=== PATIENT | male | born 1955 | race American Indian/Alaskan Native ===

== ENCOUNTER 2017-10-05 07:01 | Day surgery (SDC) | payer MEDICAID ==
[~2017-10-05 07:01] MED LIST: TETRACAINE 0.5% OD PRN
[2017-10-05] MEDS: VIGAMOX OD SCH ×3 (09:30→09:40)
[2017-10-05] MEDS: AK-Dilate OD SCH ×3 (09:30→09:40)
[2017-10-05] MEDS: MYDRIACYL OD SCH ×3 (09:30→09:40)
--- NOTE | 2017-10-05 09:46 | Anesthesia Consultation ---
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 Has large neck. MARIANA on CPAP. Smokes 1ppd X30 years.) - Airway Anesthetic Teeth Evaluation: Poor, Dentures ROM Head & Neck: Inadequate Mental/Hyoid Distance: Adequate Mallampati Class: Class IV Intubation Access Assessment: Difficult - Pulmonary Exam CTA: No (distal crackles) - Cardiac Exam Cardiac Exam: No Murmur - Pre-Operative Health Status ASA Pre-Surgery Classification: ASA3 Proposed Anesthetic Plan: MAC - Pre-Anesthesia Comment Pre-Anesthesia Comments: Patient tolerates 4 METS. No cold or flu. No chest pain. SOB with mild/mod exertion - Pulmonary Hx Smoking: Yes (1 PPD X 30 YEARS) Hx Sleep Apnea: Yes - Cardiovascular System Hx Hypertension: Yes (7 YEARS) - Central Nervous System Hx Psychiatric Problems: No - Other Systems Hx Cancer: No
--- NOTE | 2017-10-05 09:46 | Anesthesia Day of Surgery ---
Anesthesia Day of Surgery - Day of Surgery Patient Examined: Yes Patient H&P Reviewed: Yes Patient is NPO: Yes
[2017-10-05] MEDS ORDERED: NARCAN 0.4 MG/1 ML IV PRN (09:49)
[2017-10-05] MEDS ORDERED: ZOFRAN IV PRN (09:49)
[2017-10-05] MEDS ORDERED: DILAUDID IV PRN (09:49)
[2017-10-05] MEDS ORDERED: DEMEROL IV PRN (09:49)
[2017-10-05] MEDS ORDERED: LACTATED RINGERS 1,000 ML IV SCH (10:00)
[2017-10-05] MEDS ORDERED: VERSED ONE (10:08)
[2017-10-05] MEDS ORDERED: SUBLIMAZE ONE (10:31)
--- NOTE | 2017-10-05 10:37 | Post Anesthesia Evaluation ---
- Post Anesthesia Evaluation Patient Participated: Yes Airway Patent: Yes Stable Respiratory Function: Yes Nausea/Vomiting: No Temp > 96.8F: Yes Pain Manageable: Yes Adequeate Hydration: Yes Anesthesia Complications: No
[2017-10-05] MEDS ORDERED: DIAMOX PO ONE (10:50)
--- NOTE | 2017-10-05 10:53 | Operative Report ---
Operative Report Operative Report: PATIENT'S NAME: DATE OF : DATE OF SURGERY: 10/05/2017 PREOPERATIVE DIAGNOSIS: Cataract right eye POSTOPERATIVE DIAGNOSIS: Same OPERATIVE PROCEDURE: Phacoemulsification with intraocular lens implantation, right eye SURGEON: Ariane King M.D. POWER EQUIPMENT MECHANICS INSTRUCTOR SURGEON: Nagi Lens: [id number] 22.0 D ANESTHESIA: Monitored anesthesia care in combination with topical and intracameral anesthesia because of the established specific risk of reflux, arrhythmias, or anxiety attacks associated with ocular manipulation, as well as the difficulty of the batch heat treat operator to manage such potentially catastrophic events while simultaneously attempting to complete the surgical procedure and was deemed necessary for the patient's safety to have an Port Crane Operator present during the procedure whenever possible. An Port Crane Operator was utilized to regulate the intravenous sedation of the patient so the patient was cooperative yet not asleep in order for the patient to successfully maintain fixation of the eye on the operating light of the microscope. COMPLICATIONS: No surgical complications No blood loss. ALLERGIES: No known drug allergies PROGNOSIS: Excellent INDICATIONS FOR SURGERY: The patient is undergoing surgery in the hopes of eliminating or improving these visual difficulties. PROCEDURE: After arriving at the surgery center, the patient was given topical anesthetic and dilating drops, as noted in the record. The patient was then taken into the operating room and given more anesthetic drops. The eyelids , lashes, and lid margins were scrubbed with Betadine solution, and the patient was draped. The Nurse Port Crane Operator administered IV sedation and monitored the patient during the procedure. The eye was then fixated with a 0.12, and a stab incision was made in the peripheral clear cornea into the anterior chamber. This was made on my left side. Viscoelastic was next used to fill the anterior chamber. The eye was once again fixated with the 0.12 forceps and a keratome was used make an incision in clear cornea peripherally on my right hand side temporally. The capsule forceps were used to open the central anterior capsule and then make a continuous round capsulotomy. Hydrodissection was carried out utilizing a cannula and balanced salt solution to delineate the cortical material from the capsule and the nucleus from the cortical material. The phaco tip was introduced into the eye and used to remove the anterior cortical material in the area of the capsulotomy. Then the phaco tip was buried into the nucleus, and a chopping instrument was introduced into the eye and used to provide countertraction in the nucleus between this instrument and the phaco tip fracturing the nucleus. This procedure was repeated multiple times, providing multiple small segments of the lens, and then the phaco tip was used to remove each of these segments. An I/A tip was then used to remove the remaining cortex. The anterior chamber was refilled with viscoelastic. An one-piece, acrylic intraocular lens was then placed into an inserting cartridge. The tip of the inserting cartridge was introduced into the keratome incision and into the anterior chamber. The implant was gently advanced through the cartridge and into the eye, where it unfolded, and both haptics were placed in the capsular bag, where it centered nicely and appeared to be well fixated. After placement of the intraocular lens, the I~and~A handpiece was placed back into the eye and used to remove the viscoelastic, including viscoelastic that was behind the optic of the intraocular lens. The anterior chamber was then filled with balanced salt solution, and hydration of the wound was used to cause swelling of the wound and more appropriate watertight closure. When the wound was found to be firm, the patient was asked to comment on how bright the light was. If there was no light perception at all or if the light was substantially dimmer than during the rest of the surgery, the amount of fluid in the eye was decompressed to lower the intraocular pressure until the patient could see the bright light again. This was done to avoid any damage or decreased blood flow to the optic nerve. MEDICATIONS APPLIED AT END OF SURGERY: One drop of Pred Forte and Vigamox The patient was given a shield to wear at night and was instructed not to rub or push on the eye. DISCHARGE SUMMARY: The patient was released in stable condition. The patient and those with the patient were given a written sheet of postoperative instructions and counseling on any abnormal laboratory studies. The patient is to see us tomorrow for follow-up in the office and is to call immediately for any difficulties. Ariane King M.D. Date
--- NOTE | 2017-10-05 10:56 | Short Stay Summary ---
Short Stay Documentation Date of service: 10/05/17 - History H&P: obtained from office - Allergies and Medications Current Medications: Allergies corn Allergy (Verified 10/05/17 10:12) Unknown FOUND ON ALLERGY TESTING milk Allergy (Verified 10/05/17 10:12) Unknown FOUND ON ALLERGY TESTING tomato Allergy (Verified 10/05/17 10:12) Unknown FOUND ON ALLERGY TESTING wheat Allergy (Verified 10/05/17 10:12) Unknown FOUND ON ALLERY TESTING peanut Adverse Reaction (Verified 10/05/17 10:11) Anaphylaxis shrimp Adverse Reaction (Verified 10/05/17 10:11) Anaphylaxis Home Medications Medication Instructions Recorded Confirmed Last Taken Type Aspirin [Adult Low Dose Aspirin EC] 81 mg PO DAILY 10/04/17 10/04/17 10/04/17 History Hydrochlorothiazide [HCTZ] 25 mg PO QDAY 10/04/17 10/04/17 10/05/17 05:30 History Loratadine [Claritin] 10 mg PO DAILY 10/04/17 10/04/17 10/05/17 05:30 History Losartan [Cozaar] 100 mg PO QDAY 10/04/17 10/04/17 10/05/17 05:30 History Metformin HCl [Metformin HCl ER] 1,000 mg PO DAILY 10/04/17 10/04/17 10/04/17 History Naproxen [Naprosyn] 500 mg PO DAILY PRN 10/04/17 10/04/17 10/04/17 History Simvastatin [Zocor TAB] 40 mg PO DAILY 10/04/17 10/04/17 10/04/17 History amLODIPine [Norvasc] 10 mg PO DAILY 10/04/17 10/04/17 10/05/17 05:30 History fentaNYL [Fentanyl] 1 each TD Q72H 10/04/17 10/05/17 3 Days Ago History ~10/02/17 Active Medications Hydromorphone HCl (Dilaudid) 0.25 mg IV Q10MIN PRN PRN Reason: Pain, Moderate (4-6) Stop: 10/05/17 18:00 Lactated Ringer's (Lactated Ringers) 1,000 mls @ 100 mls/hr IV DIRECT YEIMY Meperidine HCl (Demerol) 25 mg IV ONCE PRN PRN Reason: Shivering Stop: 10/05/17 18:00 Moxifloxacin HCl (Vigamox) 1 drops OD Q5MIN YEIMY Stop: 10/07/17 06:01 Last Admin: 10/05/17 09:40 Dose: 1 drops Naloxone HCl (Narcan 0.4 Mg/1 Ml) 0.1 mg IV Q2MIN PRN PRN Reason: Res Rate </= 8 or 02 SAT < 92% Ondansetron HCl (Zofran) 4 mg IV ONCE PRN PRN Reason: Nausea And Vomiting Stop: 10/05/17 18:00 Phenylephrine HCl (Ak-Dilate) 1 drops OD Q5MIN YEIMY Stop: 10/07/17 06:01 Last Admin: 10/05/17 09:40 Dose: 1 drops Prednisolone Acetate (Pred Forte 1%) 1 drops OD QID YEIMY Tetracaine HCl (Tetracaine 0.5%) 1 drops OD Q5M PRN PRN Reason: Analgesia Last Admin: 10/05/17 09:30 Dose: 1 drops Tropicamide (Mydriacyl) 1 drops OD Q5MIN YEIMY Stop: 10/07/17 06:01 Last Admin: 10/05/17 09:40 Dose: 1 drops - Brief post op/procedure progress note Date of procedure: 10/05/17 Pre-op diagnosis: right cataract Post-op diagnosis: same Procedure: Phacoemulsification with intraocular lens insertion right eye Anesthesia: MAC, local Surgeon: JEVON ABRRETO Estimated blood loss: none Pathology: none Condition: stable - Disposition Condition at discharge: Good Disposition: DC-01 TO HOME OR SELFCARE - Discharge Diagnoses (1) Cataract Status: Acute Qualifiers: Cataract type: age-related Age-related cataract type: nuclear Laterality : right Qualified Code(s): H25.11 - Age-related nuclear cataract, right eye Short Stay Discharge Plan Follow up with: DEVAUGHN MORAN MD [Primary Care Provider] - 7 Days
[2017-10-05] MEDS ORDERED: PRED FORTE 1% OD SCH (11:00)
[2017-10-05 19:15] VITALS: BP 124/74
== END 2017-10-05 12:05 | disposition home or self-care (01) ==
LOC: OR 07:01
DX: E11.36 Type 2 diabetes mellitus with diabetic cataract (principal); I10 Essential (primary) hypertension; Z98.890 Other specified postprocedural states; Z91.010 Allergy to peanuts; Z91.013 Allergy to seafood; Z91.018 Allergy to other foods; Z79.899 Other long term (current) drug therapy; Z79.82 Long term (current) use of aspirin; Z91.011 Allergy to milk products; Z79.84 Long term (current) use of oral hypoglycemic drugs
CPT/HCPCS: 66984; 82962; J2250; J3010; V2632

== ENCOUNTER 2017-10-19 07:14 | Day surgery (SDC) | payer MEDICAID ==
[~2017-10-19 07:14] MED LIST changes: -TETRACAINE 0.5% OD PRN; +TETRACAINE 0.5% OS PRN
--- NOTE | 2017-10-19 11:18 | Anesthesia Consultation ---
Anesthesia Consult and Med Hx Date of service: 10/19/17 - Airway Anesthetic Teeth Evaluation: Poor ROM Head & Neck: Inadequate Mental/Hyoid Distance: Adequate Mallampati Class: Class II Intubation Access Assessment: Possibly Difficult - Pulmonary Exam CTA: Yes - Pre-Operative Health Status ASA Pre-Surgery Classification: ASA3 Proposed Anesthetic Plan: MAC - Pulmonary Hx Smoking: Yes (1 PPD FOR 30 YEARS) Hx Sleep Apnea: Yes - Cardiovascular System Hx Hypertension: Yes (X7 YEARS) - Central Nervous System Hx Psychiatric Problems: No - Other Systems Hx Alcohol Use: No Hx Substance Use: No Hx Cancer: No
--- NOTE | 2017-10-19 11:19 | Anesthesia Day of Surgery ---
Anesthesia Day of Surgery - Day of Surgery Patient Examined: Yes Patient H&P Reviewed: Yes Patient is NPO: Yes
[2017-10-19] MEDS: AK-Dilate OS SCH ×3 (11:49→12:03)
[2017-10-19] MEDS: VIGAMOX OS SCH ×3 (11:49→12:04)
[2017-10-19] MEDS: MYDRIACYL OS SCH ×3 (11:49→12:03)
[2017-10-19] MEDS ORDERED: VERSED ONE (12:36)
--- NOTE | 2017-10-19 12:53 | Operative Report ---
Operative Report Operative Report: PATIENT'S NAME: DATE OF : DATE OF SURGERY: 10/19/2017 PREOPERATIVE DIAGNOSIS: Cataract left eye POSTOPERATIVE DIAGNOSIS: Same OPERATIVE PROCEDURE: Phacoemulsification with intraocular lens implantation, left eye SURGEON: Ariane King M.D. BUILDING RIGGER SURGEON: Nagi Lens: [id number] 22.0 D ANESTHESIA: Monitored anesthesia care in combination with topical and intracameral anesthesia because of the established specific risk of reflux, arrhythmias, or anxiety attacks associated with ocular manipulation, as well as the difficulty of the linux systems analyst to manage such potentially catastrophic events while simultaneously attempting to complete the surgical procedure and was deemed necessary for the patient's safety to have an Public Service Officer present during the procedure whenever possible. An Public Service Officer was utilized to regulate the intravenous sedation of the patient so the patient was cooperative yet not asleep in order for the patient to successfully maintain fixation of the eye on the operating light of the microscope. COMPLICATIONS: o surgical complications No blood loss. ALLERGIES: [place] drug allergies PROGNOSIS: Excellent INDICATIONS FOR SURGERY: The patient is undergoing surgery in the hopes of eliminating or improving these visual difficulties. PROCEDURE: After arriving at the surgery center, the patient was given topical anesthetic and dilating drops, as noted in the record. The patient was then taken into the operating room and given more anesthetic drops. The eyelids , lashes, and lid margins were scrubbed with Betadine solution, and the patient was draped. The Nurse Public Service Officer administered IV sedation and monitored the patient during the procedure. The eye was then fixated with a 0.12, and a stab incision was made in the peripheral clear cornea into the anterior chamber. This was made on my left side. Viscoelastic was next used to fill the anterior chamber. The eye was once again fixated with the 0.12 forceps and a keratome was used make an incision in clear cornea peripherally on my right hand side temporally. The capsule forceps were used to open the central anterior capsule and then make a continuous round capsulotomy. Hydrodissection was carried out utilizing a cannula and balanced salt solution to delineate the cortical material from the capsule and the nucleus from the cortical material. The phaco tip was introduced into the eye and used to remove the anterior cortical material in the area of the capsulotomy. Then the phaco tip was buried into the nucleus, and a chopping instrument was introduced into the eye and used to provide countertraction in the nucleus between this instrument and the phaco tip fracturing the nucleus. This procedure was repeated multiple times, providing multiple small segments of the lens, and then the phaco tip was used to remove each of these segments. An I/A tip was then used to remove the remaining cortex. The anterior chamber was refilled with viscoelastic. An one-piece, acrylic intraocular lens was then placed into an inserting cartridge. The tip of the inserting cartridge was introduced into the keratome incision and into the anterior chamber. The implant was gently advanced through the cartridge and into the eye, where it unfolded, and both haptics were placed in the capsular bag, where it centered nicely and appeared to be well fixated. After placement of the intraocular lens, the I~and~A handpiece was placed back into the eye and used to remove the viscoelastic, including viscoelastic that was behind the optic of the intraocular lens. The anterior chamber was then filled with balanced salt solution, and hydration of the wound was used to cause swelling of the wound and more appropriate watertight closure. When the wound was found to be firm, the patient was asked to comment on how bright the light was. If there was no light perception at all or if the light was substantially dimmer than during the rest of the surgery, the amount of fluid in the eye was decompressed to lower the intraocular pressure until the patient could see the bright light again. This was done to avoid any damage or decreased blood flow to the optic nerve. MEDICATIONS APPLIED AT END OF SURGERY: One drop of Pred Forte and Vigamox The patient was given a shield to wear at night and was instructed not to rub or push on the eye. DISCHARGE SUMMARY: The patient was released in stable condition. The patient and those with the patient were given a written sheet of postoperative instructions and counseling on any abnormal laboratory studies. The patient is to see us tomorrow for follow-up in the office and is to call immediately for any difficulties. Ariane King M.D. Date
--- NOTE | 2017-10-19 12:54 | Short Stay Summary ---
Short Stay Documentation Date of service: 10/19/17 - History H&P: obtained from office - Allergies and Medications Current Medications: Allergies corn Allergy (Verified 10/17/17 14:00) Unknown FOUND ON ALLERGY TESTING milk Allergy (Verified 10/17/17 14:00) Unknown FOUND ON ALLERGY TESTING tomato Allergy (Verified 10/17/17 14:00) Unknown FOUND ON ALLERGY TESTING wheat Allergy (Verified 10/17/17 14:00) Unknown FOUND ON ALLERY TESTING chicken derived Adverse Reaction (Verified 10/19/17 12:24) Swelling peanut Adverse Reaction (Verified 10/17/17 14:00) Anaphylaxis shrimp Adverse Reaction (Verified 10/17/17 14:00) Anaphylaxis soy Adverse Reaction (Verified 10/19/17 12:22) Swelling Home Medications Medication Instructions Recorded Confirmed Last Taken Type Aspirin [Adult Low Dose Aspirin EC] 81 mg PO DAILY 10/04/17 10/19/17 10/18/17 09 :00 History Hydrochlorothiazide [HCTZ] 25 mg PO QDAY 10/04/17 10/19/17 10/18/17 09:00 History Loratadine [Claritin] 10 mg PO DAILY 10/04/17 10/19/17 10/19/17 06:15 History Losartan [Cozaar] 100 mg PO QDAY 10/04/17 10/19/17 10/19/17 06:15 History Metformin HCl [Metformin HCl ER] 1,000 mg PO DAILY 10/04/17 10/19/17 10/18/17 09 :00 History Naproxen [Naprosyn] 500 mg PO DAILY PRN 10/04/17 10/17/17 10/04/17 History Simvastatin [Zocor TAB] 40 mg PO DAILY 10/04/17 10/19/17 10/17/17 21:00 History amLODIPine [Norvasc] 10 mg PO DAILY 10/04/17 10/19/17 10/19/17 06:15 History fentaNYL [Fentanyl] 1 each TD Q72H 10/04/17 10/19/17 10/19/17 06:15 History Ergocalciferol [Vitamin D2] 1 cap PO QWEEK 10/17/17 10/19/17 10/12/17 09:00 History Ferrous Sulfate [Feosol] 325 mg PO QDAY 10/17/17 10/19/17 10/12/17 09:00 History Active Medications Acetazolamide (Diamox) 500 mg PO ONCE ONE Stop: 10/19/17 12:53 Moxifloxacin HCl (Vigamox) 1 drops OS Q5MIN [facility] Stop: 10/19/17 18:00 Last Admin: 10/19/17 12:04 Dose: 1 drops Phenylephrine HCl (Ak-Dilate) 1 drops OS Q5MIN YEIMY Stop: 10/19/17 18:00 Last Admin: 10/19/17 12:03 Dose: 1 drops Prednisolone Acetate (Pred Forte 1%) 1 drops OS QID YEIMY Tetracaine HCl (Tetracaine 0.5%) 1 drops OS Q5M PRN PRN Reason: Analgesia Stop: 10/19/17 18:00 Last Admin: 10/19/17 11:48 Dose: 1 drops Tropicamide (Mydriacyl) 1 drops OS Q5MIN [facility] Stop: 10/19/17 18:00 Last Admin: 10/19/17 12:03 Dose: 1 drops - Brief post op/procedure progress note Date of procedure: 10/19/17 Pre-op diagnosis: left cataract Post-op diagnosis: same Procedure: Phacoemulsification intraocular lens insertion left eye Anesthesia: MAC, local Surgeon: JEVON BARRETO Estimated blood loss: none Pathology: none Condition: stable - Disposition Condition at discharge: Good Disposition: DC-01 TO HOME OR SELFCARE - Discharge Diagnoses (1) Cataract Status: Acute Qualifiers: Cataract type: age-related Age-related cataract type: nuclear Laterality : left Qualified Code(s): H25.12 - Age-related nuclear cataract, left eye Short Stay Discharge Plan Follow up with: DR DEAN [Other] - 7 Days
[2017-10-19] MEDS ORDERED: DIAMOX PO ONE (13:52)
[2017-10-19] MEDS ORDERED: PRED FORTE 1% OS SCH (14:00)
[2017-10-19 17:30] VITALS: BP 132/78
== END 2017-10-19 15:20 | disposition home or self-care (01) ==
LOC: OR 07:14
DX: E11.36 Type 2 diabetes mellitus with diabetic cataract (principal); I10 Essential (primary) hypertension; G47.30 Sleep apnea, unspecified; E66.9 Obesity, unspecified; F17.210 Nicotine dependence, cigarettes, uncomplicated; Z91.010 Allergy to peanuts; Z91.013 Allergy to seafood; Z91.018 Allergy to other foods; Z79.899 Other long term (current) drug therapy; Z79.82 Long term (current) use of aspirin; Z91.011 Allergy to milk products; Z79.84 Long term (current) use of oral hypoglycemic drugs; Z68.38 Body mass index [BMI] 38.0-38.9, adult
CPT/HCPCS: 66984; 82962; J2250; V2632